=== PATIENT | female | born 1930 | race Caucasian/White ===

== ENCOUNTER 2018-03-01 07:06 | Emergency (ER) | payer MEDICARE, OTHER ==
[~2018-03-01] VITALS: Ht 157.5 cm; Wt 63.5 kg
[~2018-03-01 07:06] MED LIST: FLUDROCORTISON0.1 MG PO; LEVOTHYROXINE75 MCG PO; LIOTHYRONINE PO; PREDNISONE2.5 MG PO; PREDNISONE20 MG; PREDNISONE5 M1 PO; PROTONIX40 MG PO
--- OUTSIDE RECORDS SUMMARY | 2018-03-01 07:08 | XMS REPORT | Clinical Summary ---
Author Author [facility] Organization [facility] Address Unknown Phone Unavailable Care Team Providers Care Service Station Cashier Name Role Phone Yovani Cesar MD PCP Unavailable Allergies Active Allergy Reactions Severity Noted Date Comments Buspirone 09/20/2017 Codeine 09/20/2017 Current Medications Prescription Sig. Disp. Refills Start End Date Status Date hydrocortisone (CORTEF) 2.5 tablets daily. 1.5 in 07/12/20 Active 10 MG tablet the AM and .5 at noon and 17 .5 qhs fludrocortisone 0.1 mg 0.5 tablets daily. 08/15/20 Active tablet 17 pantoprazole (PROTONIX) 1 tablet daily. 07/18/20 Active 40 MG EC tablet 17 levothyroxine (SYNTHROID, 1 tablet daily. 08/17/20 Active LEVOXYL) 88 mcg tablet 17 cholecalciferol, vitamin Take 2,000 Units by mouth Active D3, (VITAMIN D3) 2,000 daily. unit capsule capsule cyanocobalamin 1,000 1,000 mcg every 14 12/28/19 Active mcg/mL injection (fourteen) days. 18 memantine (NAMENDA) 5 MG Take one by mouth in a.m. 90 tablet 4 Active tablet and 2 by mouth in the 18 p.m. as directed memantine (NAMENDA XR) 7 Take 1 by mouth every 46 capsule 0 09/20/20 09/27/20 Discontin mg capsule,sprinkle,ER morning for 2 weeks and 17 17 ued 24hrIndications: Late then 2 by mouth every onset Alzheimer's disease morning thereafter with behavioral disturbance memantine (NAMENDA) 5 MG Take 1 tablet daily for a 60 tablet 3 01/19/20 Discontin tablet week and then 1 tablet 17 18 ued twice daily thereafter memantine (NAMENDA) 5 MG TAKE ONE TABLET BY MOUTH 60 tablet 0 02/06/20 Discontin tablet ONCE DAILY FOR ONE WEEK, 18 18 ued THEN TAKE ONE TABLET TWICE DAILY THEREAFTER Active Problems Problem Noted Date Late onset Alzheimer's disease with behavioral disturbance 09/20/2017 Anxiety 09/20/2017 Hallucinations 09/20/2017 Encounters Date Type Specialty Care Team Description 02/05/2018 Telephone Neurology Cristina Hanley MA 01/22/2018 Telephone Neurology Cristina Hanley MA 01/20/2018 Telephone Neurology Lucy Lema MD Late onset Alzheimer's disease with behavioral disturbance (Primary Dx) 01/18/2018 Refill Neurology Lucy Lema MD 01/16/2018 Office Visit Neurology Lucy Lema MD Late onset Alzheimer's disease with behavioral disturbance (Primary Dx); Anxiety; Hallucinations 01/16/2018 Refill Neurology Lucy Lema MD 09/26/2017 Telephone Neurology Cristina Hanley MA 09/20/2017 Office Visit Neurology Lucy Lema MD Late onset Alzheimer's disease with behavioral disturbance (Primary Dx); Anxiety; Hallucinations after 02/28/2017 Family History Medical History Relation Name Comments Alzheimer's disease Sister Relation Name Status Comments Father (Age 76) Mother (Age 99) Sister Alive Social History Tobacco Use Types Packs/Day Years Used Date Never Smoker Smokeless Tobacco: Never Used Alcohol Use Drinks/Week oz/Week Comments No Sex Assigned at Date Recorded Not on file Last Filed Vital Signs Vital Sign Reading Time Taken Blood Pressure - - Pulse - - Temperature - - Respiratory Rate - - Oxygen Saturation - - Inhaled Oxygen - - Concentration Weight 60.3 kg (133 lb) 01/16/2018 2:10 PM ELECTRICAL INSTALLATION INSPECTOR Height 152.4 cm (5') 01/16/2018 2:10 PM ELECTRICAL INSTALLATION INSPECTOR Body Mass Index 25.97 01/16/2018 2:10 PM ELECTRICAL INSTALLATION INSPECTOR Plan of Treatment Date Type Specialty Care Team Description 07/17/2018 Office Visit Neurology Lucy Lema MD [address] [facility] [address] [place] [id number] [phone] Health Maintenance Due Date Last Done Comments ZOSTER VACCINE 1989 PNEUMOCOCCAL 1994 POLYSACCHARIDE VACCINE AGE 65 AND OVER PNEUMOCOCCAL-13 1994 INFLUENZA VACCINE 06/11/2018 Results Not on fileafter 02/28/2017 Insurance Payer Benefit Subscriber ID Type Phone Address Plan / Group MEDICARE MEDICARE xxxxxxxxxx Medicare [place], [place] PART A AND B AARP AARP xxxxxxxxx-xx [place] [address]
--- NOTE | 2018-03-01 09:33 | Diagnostic Imaging Report ---
KNEE LEFT THREE VIEWS - 3 views HISTORY: Pain. Knee laceration COMPARISON: None available. FINDINGS: Bones: No acute displaced fracture. Osseous alignment is within normal limits. Joints: Mild degenerative changes in the medial and patellofemoral compartments. Soft tissues: Subcutaneous emphysema with soft tissue thickening in the infrapatellar region. IMPRESSION: 1. No acute radiographic abnormality. No radiopaque foreign bodies. 2. Subcutaneous emphysema with soft tissue thickening in the infrapatellar region. Signed by: Dr. Tyler Keenan M.D. on 03/01/2018 9:29 AM
--- NOTE | 2018-03-01 09:34 | Diagnostic Imaging Report ---
HIP LEFT 2-3 VW (+/- PELVIS) - 3 views HISTORY: Pain. Laceration knee COMPARISON: None available. FINDINGS: Bones: No acute displaced fracture. Osseous alignment is within normal limits. Joints: Moderate joint space narrowing in bilateral hips. Severe degenerative changes in lower lumbar spine. Soft tissues: The soft tissues appear unremarkable. IMPRESSION: No acute radiographic abnormality. Signed by: Dr. Tyler Keenan M.D. on 03/01/2018 9:30 AM
--- NOTE | 2018-03-01 09:35 | Diagnostic Imaging Report ---
EXAMINATION: CHEST SINGLE (NOT PORTABLE) INDICATION: \S\fell onto left knee COMPARISON: None FINDINGS: AP view TUBES and LINES: None. LUNGS: Lungs are mildly hypoinflated. Emphysematous changes.. Calcified granuloma in the left midlung. Biapical pleural-parenchymal scarring. Lungs are otherwise clear. There is no evidence of pneumonia or pulmonary edema. PLEURA: No pleural effusion or pneumothorax. HEART AND MEDIASTINUM: The cardiomediastinal silhouette is unremarkable. There are atherosclerotic calcifications within the aorta. BONES AND SOFT TISSUES: No acute osseous lesion. Moderate degenerative changes in left shoulder. Soft tissues are unremarkable. UPPER ABDOMEN: No free air under the diaphragm. IMPRESSION: No acute thoracic abnormality. Signed by: Dr. Tyler Keenan M.D. on 03/01/2018 9:32 AM
== END 2018-03-01 10:27 | disposition home or self-care (01) ==
LOC: ER 07:06
DX: S81.002A Unspecified open wound, left knee, initial encounter (principal); M79.652 Pain in left thigh; Y92.008 Other place in unspecified non-institutional (private) residence as the place of occurrence of the external cause; W19.XXXA Unspecified fall, initial encounter; F03.90 Unspecified dementia, unspecified severity, without behavioral disturbance, psychotic disturbance, mood disturbance, and anxiety; E03.9 Hypothyroidism, unspecified; E27.1 Primary adrenocortical insufficiency
CPT/HCPCS: 71045; 99283

== ENCOUNTER → 2018-03-18 | Outpatient (CLI) | payer MEDICARE ==
--- NOTE | 2018-03-18 12:27 | Diagnostic Imaging Report ---
PROCEDURE:HIPS BILAT TWO VWS(+/- PELVIS) TECHNIQUE:AP and frog-leg lateral views of both hips INDICATION:Pain COMPARISON:None. FINDINGS: See conclusion. CONCLUSION: 1. Displaced left superior and minimally displaced left inferior pubic rami fractures with extension into the pubic symphysis. Right pubic rami intact. 2. Intact femurs and acetabula. Dictated by: Michel Shukla M.D. on 03/18/2018 at 12:29 Electronically approved by: Michel Shukla M.D. on 03/18/2018 at 12:29
== END ==
LOC: RAD 11:30
PROVIDERS: ATTEND Internal Medicine
DX: M25.552 Pain in left hip (principal); M25.551 Pain in right hip
CPT/HCPCS: 73521

== ENCOUNTER → 2018-04-10 | Outpatient (RCR) | payer MEDICARE ==
[~2018-04-10] MED LIST changes: +LIDOCAINE/PRILOCAINE 2.5-2.5% KIT ONE
== END ==
LOC: WCC 09:48
PROVIDERS: ATTEND Family Medicine Adult Medicine
DX: S81.002A Unspecified open wound, left knee, initial encounter (principal); E03.2 Hypothyroidism due to medicaments and other exogenous substances; E27.1 Primary adrenocortical insufficiency; F03.90 Unspecified dementia, unspecified severity, without behavioral disturbance, psychotic disturbance, mood disturbance, and anxiety; H91.23 Sudden idiopathic hearing loss, bilateral; K21.9 Gastro-esophageal reflux disease without esophagitis; W06.XXXA Fall from bed, initial encounter

== ENCOUNTER 2018-05-02 16:20 | Outpatient (RCR) | payer MEDICARE ==
[~2018-05-02 16:20] MED LIST changes: +LIDOCAINE VISC 2% SOLN 15 ML UDC ONE; -LIDOCAINE/PRILOCAINE 2.5-2.5% KIT ONE
== END 2018-05-10 ==
LOC: WCC 16:20
PROVIDERS: ATTEND Family Medicine Adult Medicine
DX: S81.002A Unspecified open wound, left knee, initial encounter (principal); W06.XXXA Fall from bed, initial encounter; E03.2 Hypothyroidism due to medicaments and other exogenous substances; E27.1 Primary adrenocortical insufficiency; F03.90 Unspecified dementia, unspecified severity, without behavioral disturbance, psychotic disturbance, mood disturbance, and anxiety; H91.23 Sudden idiopathic hearing loss, bilateral; K21.9 Gastro-esophageal reflux disease without esophagitis

== ENCOUNTER → 2019-01-08 | Outpatient (CLI) | payer MEDICARE ==
[~2019-01-08] MED LIST changes: -LIDOCAINE VISC 2% SOLN 15 ML UDC ONE
--- NOTE | 2019-01-08 11:22 | Diagnostic Imaging Report ---
EXAMINATION: CHEST 2 VIEWS INDICATION: Cough. COMPARISON: Chest radiograph 03/01/2018. FINDINGS: TUBES and LINES: None. LUNGS: Emphysematous changes. Calcified granuloma in the left midlung. Biapical pleural-parenchymal opacity. There is no evidence of pneumonia or pulmonary edema. PLEURA: No pleural effusion or pneumothorax. HEART AND MEDIASTINUM: The cardiomediastinal silhouette is unchanged. There are atherosclerotic calcifications within the aorta. There is a large hiatal hernia. BONES AND SOFT TISSUES: Diffuse osteopenia which limits evaluation. No acute abnormality. UPPER ABDOMEN: No free air under the diaphragm. IMPRESSION: No acute radiographic abnormality. Large hiatal hernia. Suggest clinical correlation for gastroesophageal reflux in this patient with cough. Signed by: Dr. Lizandro Aguirre MD on 01/08/2019 11:19 AM
== END ==
LOC: RAD 10:38
PROVIDERS: ATTEND Internal Medicine
DX: R05 Cough (principal)
CPT/HCPCS: 71046

== ENCOUNTER 2019-04-03 16:27 | Inpatient (IN) | payer MEDICARE ==
[~2019-04-03] VITALS: Ht 154.9 cm; Wt 59.5 kg
--- OUTSIDE RECORDS SUMMARY | 2019-04-03 16:30 | XMS REPORT | Clinical Summary ---
Author Author [facility] Organization [facility] Address Unknown Phone Unavailable Care Team Providers Care Training Officer Name Role Phone Rusty Cesar MD PCP Allergies Comments Active Allergy Reactions Severity Noted Date Buspirone 09/20/2017 Codeine 09/20/2017 Medications End Date Status Medication Sig Dispensed Refills Start Date Active hydrocortisone (CORTEF) 2.5 tablets 0 10 MG tablet daily. 1.5 in 7 the AM and .5 at noon and .5 qhs Active fludrocortisone 0.1 mg 0.5 tablets 0 tablet daily. 7 Active pantoprazole (PROTONIX) 1 tablet 0 40 MG EC tablet daily. 7 Active levothyroxine (SYNTHROID, 1 tablet 0 LEVOXYL) 88 mcg tablet daily. 7 Active cholecalciferol, vitamin Take 2,000 0 D3, (VITAMIN D3) 2,000 Units by unit capsule capsule mouth daily. Active cyanocobalamin 1,000 1,000 mcg 0 mcg/mL injection every 14 8 (fourteen) days. Active donepezil (ARICEPT) 5 MG Take 1 tablet 30 tablet 2 tabletIndications: Late daily after 8 onset Alzheimer's disease lunch with behavioral disturbance Active memantine (NAMENDA) 10 MG TAKE 1 TABLET 180 tablet 0 tablet TWICE DAILY 9 04/29/2018 Discontinued memantine (NAMENDA) 5 MG Take one by 90 tablet 4 tablet mouth in a.m. 8 and 2 by mouth in the p.m. as directed 10/28/2018 Discontinued memantine (NAMENDA) 10 MG Take 1 tablet 60 tablet 3 tablet (10 mg total) 8 by mouth 2 (two) times a day. 10/07/2018 Discontinued sertraline (ZOLOFT) 25 MG Take 1 by 60 tablet 2 tablet mouth daily 8 for 2 weeks and then 2 by mouth daily thereafter 03/02/2019 Discontinued memantine (NAMENDA) 10 MG TAKE 1 TABLET 180 tablet 1 tablet TWICE DAILY 8 Active Problems Problem Noted Date Daytime somnolence 10/07/2018 Late onset Alzheimer's disease with behavioral disturbance 09/20/2017 Anxiety 09/20/2017 Hallucinations 09/20/2017 Encounters Care Team Description Date Type Specialty Cristina Hanley MA 04/03/2019 Telephone Neurology Lucy Lema MD 03/02/2019 Refill Neurology Cristina Hanley MA 01/06/2019 Telephone Neurology Cristina Hanley MA 12/10/2018 Telephone Neurology Lucy Lema MD 10/28/2018 Refill Neurology Cristina Hanley MA 10/13/2018 Telephone Neurology Lucy Lema MD Late onset Alzheimer's disease with behavioral disturbance (Primary Dx); Anxiety; Hallucinations; Daytime somnolence 10/07/2018 Office Visit Neurology Cristina Hanley MA 05/13/2018 Telephone Neurology Cristina Hanley MA 04/29/2018 Telephone Neurology after 04/02/2018 Family History Medical History Relation Name Comments Alzheimer's disease Sister Relation Name Status Comments Father (Age 76) Mother (Age 99) Sister Alive Social History Date Tobacco Use Types Packs/Day Years Used Never Smoker Smokeless Tobacco: Never Used Alcohol Use Drinks/Week oz/Week Comments No Sex Assigned at Date Recorded Not on file Industry Job Start Date Occupation Not on file Not on file Not on file Travel End Travel History Travel Start No recent travel history available. Last Filed Vital Signs Time Taken Vital Sign Reading - Blood Pressure - - Pulse - - Temperature - - Respiratory Rate - - Oxygen Saturation - - Inhaled Oxygen - Concentration 10/07/2018 10:31 AM MANAGER INTERMEDIATE Weight 60.8 kg (134 lb) 10/07/2018 10:31 AM MANAGER INTERMEDIATE Height 152.4 cm (5') 10/07/2018 10:31 AM MANAGER INTERMEDIATE Body Mass Index 26.17 Plan of Treatment Care Team Description Date Type Specialty Lucy Lema MD [address] [facility] [address] [place], [place] [id number] 06/16/2019 Office Visit Neurology Health Maintenance Due Date Last Done Comments SHINGLES VACCINES (#1) 1979 65+ PNEUMOCOCCAL VACCINE 1994 (1 of 2 - PCV13) PNEUMOCOCCAL 1994 POLYSACCHARIDE VACCINE AGE 65 AND OVER INFLUENZA VACCINE 06/11/2019 Results Not on fileafter 04/02/2018 Insurance Type Payer Benefit Subscriber ID Effective Phone Address Plan / Dates Group Medicare MEDICARE MEDICARE xxxxxxxxxx 1994-P [place], PART A AND resent [place] B Commercial AARP AARP xxxxxxxxx-xx 2015-P SUPPLEMENT resent Advance Directives Patient has advance care planning documents on file. For more information, chris malloy contact: Ok Davis [address] [place] [address]
--- OUTSIDE RECORDS SUMMARY | 2019-04-03 16:30 | XMS REPORT ---
Author Author Bo Acharya Organization [employer] Address Unknown Phone Unavailable Care Team Providers Care Manager Global Communications Name Role Phone Bo Acharya CP Unavailable Allergies No Known Allergies Problems Problem Type Condition Code Onset Dates Condition Status Problem Age related osteoporosis M81.0 Active Problem Vitamin D deficiency E55.9 Active Problem Long-term use of high-risk medication Z79.899 Active Medications No Known Medications Results No Known Results Summary Purpose [employer] Submission
--- OUTSIDE RECORDS SUMMARY | 2019-04-03 16:30 | XMS REPORT | Continuity of Care Document ---
Author Author [facility] Interface Address Unknown Phone Unavailable Problems Problem Status Onset Date Classification Date Reported Comments Source Age related osteoporosis Active Problem 10/25/2018 Farhat Acharya Vitamin D deficiency Active Problem 10/25/2018 Farhat Acharya Long-term use of high-risk medication Active Problem 10/25/2018 Farhat Acharya Endocrine disorder, unspecified Active Diagnosis 10/25/2018 Farhat Acharya Medications Medication Details Route Status Patient Instructions Ordering Provider Order Date Source Prednisone 20 Mg Tab, Active 05/13/2014 [facility] Levothyroxine Sodium 1 tablet on an empty stomach in the morning Orally Active 88 MCG Orally Once a day Newton Acharya Fludrocortisone Acetate 1 tablet Orally Active 0.1 MG Orally Three times a Week Newton Acharya Memantine HCl 1 tablet Orally Active 5 MG Orally twice a day Justine Farhat Acharya Vitamin D-3 as directed Orally Active 2,000 units Orally Newton Acharya Hydrocodone-Acetaminophen 1 tablet as needed Orally Active 20.25mg Orally every 6 hrs Justine Farhat Acharya Prolia as directed Subcutaneous Active 60 MG/ML Subcutaneous Q 6 MONTHS Newton Acharya Memantine HCl 1 tablet Orally Active 10 MG Orally twice a day Newton Acharya Hydrocortisone 1 tablet with food or milk Orally Active 20 MG Orally Four times a day Newton Acharya Fludrocortisone Acetate 0.1 Mg Tab Daily Active [facility] Levothyroxine Sodium 75 Mcg Tablet Daily Active [facility] Liothyronine Daily Active [facility] Pantoprazole Sodium (Protonix) 40 Mg Suspdr.pkt Daily Active [facility] Prednisone 2.5 Mg Tablet Bedtime Active [facility] Prednisone 5 Mg Tab.ds.pk Daily Active [facility] Allergies, Adverse Reactions, Alerts Substance Category Reaction Severity Reaction type Status Date Reported Comments Source Calcium Unknown Allergy to Substance Active 03/01/2018 [facility] Codeine AIRWAY SWELLS. Severe Allergy to Substance Active 03/01/2018 [facility] Aspirin Unknown Allergy to Substance Active 03/01/2018 [facility] Esomeprazole Unknown Allergy to Substance Active 03/01/2018 [facility] Dexlansoprazole Unknown Allergy to Substance Active 03/01/2018 [facility] NSAIDS Unknown Allergy to Substance Active 03/01/2018 [facility] N.K.D.A. Adverse Reaction Info Not Available Adverse Reaction Active 10/23/2018 Farhat Acharya Immunizations Immunization Date Given Site Status Last Updated Comments Source Results Order Name Results Value Reference Range Date Interpretation Comments Source Vital Signs Vital Sign Value Date Comments Source Weight 133.2 10/23/2018 Farhat Mclainer Height 60 10/23/2018 Farhat Acharya Temperature Oral (F) 98.4 F 10/23/2018 Farhat Acharya Heart Rate 71 10/23/2018 Farhat Acharya Diastolic (mm Hg) 75 10/23/2018 Farhat Acharya Systolic (mm Hg) 126 10/23/2018 Farhat Acharya Weight 133 04/16/2018 Farhat Acharya Height 60 04/16/2018 Farhat Acharya Temperature Oral (F) 99.1 F 04/16/2018 Farhat Acharya Heart Rate 68 04/16/2018 Farhat Acharya Diastolic (mm Hg) 78 04/16/2018 Farhat Acharya Systolic (mm Hg) 120 04/16/2018 Farhat Acharya Encounters Location Location Details Encounter Type Encounter Number Reason For Visit Attending Provider ADM Date DC Date Status Source Departed Emergency Room [id number] YUSUF QURESHI MD 03/01/2018 03/01/2018 [facility] Registered Clinic [id number] SANDIP LAST MD 03/18/2018 [facility] Discharged Recurring [id number] KATHRYN ZEPEDA MD 04/10/2018 04/10/2018 [facility] Discharged Recurring [id number] KATHRYN EZPEDA MD 05/02/2018 05/10/2018 [facility] Procedures Procedure Code Date Perfomer Comments Source X-ray of chest, single view [id number] 03/01/2018 [facility]
--- OUTSIDE RECORDS SUMMARY | 2019-04-03 16:30 | XMS REPORT ---
Author [facility] Address Unknown Phone Unavailable Care Team Providers Care Grip Boss Name Role Phone SANDIP LAST Unavailable Unavailable Lacey QURESHI Unavailable Unavailable Problems This patient has no known problems. Allergies, Adverse Reactions, Alerts This patient has no known allergies or adverse reactions. Medications This patient has no known medications. Results Test Description Test Time Test Comments Text Results Atomic Results Result Comments CHEST 2 VIEWS 2019-01-08 11:15:00 [facility] [address] [place] [address] Patient Name: GUI HOFFMAN MR #: [id number] : 1930 Age/Sex: 88/F Req #: [id number] Adm Physician: Ordered by: SANDIP LAST MD Report #: [id number] Location: [facility] Room/Bed: Procedure: [id number] DX/CHEST 2 VIEWS Exam Date: 01/08/19 Exam Time: 1045 REPORT STATUS: Signed EXAMINATION: CHEST 2 VIEWS INDICATION: Cough. COMPARISON: Chest radiograph 03/01/2018. FINDINGS: TUBES and LINES: None. LUNGS: Emphysematous changes. Calcified granuloma in the left midlung. Biapical pleural-parenchymal opacity. There is no evidence of pneumonia or pulmonary edema. PLEURA: No pleural effusion or pneumothorax. HEART AND MEDIASTINUM: The cardiomediastinal silhouette is unchanged. There are atherosclerotic calcifications within the aorta. There is a large hiatal hernia. BONES AND SOFT TISSUES: Diffuse osteopenia which limits evaluation. No acute abnormality. UPPER ABDOMEN: No free air under the diaphragm. IMPRESSION: No acute radiographic abnormality. Large hiatal hernia. Suggest clinical correlation for gastroesophageal reflux in this patient with cough. Signed by: Dr. Shawn Duarte MD on 01/08/2019 11:19 AM Dictated By: SHAWN DUARTE MD 111 Transcribed By: BLOSSOM on 01/08/191118 COPY TO: SANDIP LAST MD HIPS BILAT TWO VWS(+/- PELVIS) [place] [address] Patient Name: GUI HOFFMAN MR #: [id number] : 1930 Age/Sex: 87/F Req #: [id number] Adm Physician: Ordered by: SANDIP LAST MD Report #: [id number] Location: [facility] Room/Bed: Procedure: [id number] DX/HIPS BILAT TWO VWS(+/- PELVIS) Exam Date: Exam Time: REPORT STATUS: Signed PROCEDURE: HIPS BILAT TWO VWS(+/- PELVIS) TECHNIQUE: AP and frog-leg lateral views of both hips INDICATION: Pain COMPARISON: None. FINDINGS: See conclusion. CONCLUSION: 1. Displaced left superior and minimally displaced left inferior pubic rami fractures with extension into the pubic symphysis. Right pubic rami intact. 2. Intact femurs and acetabula. Dictated by: Venus Shukla M.D. on 03/18/2018 at 12:29 Electronically approved by: Venus Shukla M.D. on 03/18/2018 at 12:29 Dictated By: VENUS SHUKLA MD 28 Transcribed By: BRENDEN on 03/18/181228 COPY TO: SANDIP LAST MD HIP LEFT 2-3 VW (+/- PELVIS) [facility] [address] [place] [address] Patient Name: GUI HOFFMAN MR #: [id number] : 1930 Age/Sex: 87/F Req #: [id number] Adm Physician: Ordered by: YUSUF QURESHI MD Report #: [id number] Location: ER Room/Bed: Procedure: [id number] DX/HIP LEFT 2-3 VW (+/- PELVIS) Exam Date: Exam Time: REPORT STATUS: Signed HIP LEFT 2-3 VW (+/- PELVIS) - 3 views HISTORY: Pain. Laceration knee COMPARISON: None available. FINDINGS: Bones: No acute displaced fracture. Osseous alignment is within normal limits. Joints: Moderate joint space narrowing in bilateral hips. Severe degenerative changes in lower lumbar spine. Soft tissues: The soft tissues appear unremarkable. IMPRESSION: No acute radiographic abnormality. Signed by: Dr. Alexandra Banda M.D. on 03/01/2018 9:30 AM Dictated By: ALEXANDRA BANDA MD 9 Transcribed By: BLOSSOM on 03/01/18929 COPY TO: YUSUF QURESHI MD KNEE LEFT THREE VIEWS [place] [address] [place] [address] Patient Name: GUI HOFFMAN MR #: [id number] : 1930 Age/Sex: 87/F Req #: [id number] Adm Physician: Ordered by: YUSUF QURESHI MD Report #: [id number] Location: ER Room/Bed: Procedure: [id number] DX/KNEE LEFT THREE VIEWS Exam Date: 03/01/18 Exam Time: 899 REPORT STATUS: Signed KNEE LEFT THREE VIEWS - 3 views HISTORY: Pain. Knee laceration COMPARISON: None available. FINDINGS: Bones: No acute displaced fracture. Osseous alignment is within normal limits. Joints: Mild degenerative changes in the medial and patellofemoral compartments. Soft tissues: Subcutaneous emphysema with soft tissue thickening in the infrapatellar region. IMPRESSION: 1. No acute radiographic abnormality. No radiopaque foreign bodies. 2. Subcutaneous emphysema with soft tissue thickening in the infrapatellar region. Signed by: Dr. Alexandra Banda M.D. on 03/01/2018 9:29 AM Dictated By: ALEXANDRA BANDA MD 8 Transcribed By: BLOSSOM on 03/01/18928 COPY TO: YUSUF QURESHI MD [facility] SINGLE (NOT PORTABLE) [place] [address] Patient Name: GUI HOFFMAN MR #: [id number] : 1930 Age/Sex: 87/F Req #: [id number] Adm Physician: Ordered by: YUSUF QURESHI MD Report #: [id number] Location: ER Room/Bed: Procedure: [id number] DX/CHEST SINGLE (NOT PORTABLE) Exam Date: 03/01/18 Exam Time: 0900 REPORT STATUS: Signed EXAMINATION: CHEST SINGLE (NOT PORTABLE) INDICATION: S fell onto left knee COMPARISON: None FINDINGS: AP view TUBES and LINES: None. LUNGS: Lungs are mildly hypoinflated. Emphysematous changes.. Calcified granuloma in the left midlung. Biapical pleural-parenchymal scarring. Lungs are otherwise clear. There is no evidence of pneumonia or pulmonary edema. PLEURA: No pleural effusion or pneumothorax. HEART AND MEDIASTINUM: The cardiomediastinal silhouette is unremarkable. There are atherosclerotic calcifications within the aorta. BONES AND SOFT TISSUES: No acute osseous lesion. Moderate degenerative changes in left shoulder. Soft tissues are unremarkable. UPPER ABDOMEN: No free air under the diaphragm. IMPRESSION: No acute thoracic abnormality. Signed by: Dr. Alexandra Banda M.D. on 03/01/2018 9:32 AM Dictated By: ALEXANDRA BANDA MD 1 Transcribed By: BLOSSOM on 03/01/18931 COPY TO: YUSUF QURESHI MD
--- OUTSIDE RECORDS SUMMARY | 2019-04-03 16:30 | XMS REPORT ---
Author Author Enriqueta Glez [facility] [employer] Address Unknown Phone Unavailable Care Team Providers Care Sr Risk Management Consultant Name Role Phone Enriqueta Glez Unavailable Allergies, Adverse Reactions, Alerts Substance Reaction Event Type N.K.D.A. Info Not Available Non Drug Allergy Problems Problem Type Condition Code Onset Dates Condition Status Problem Age related osteoporosis M81.0 Active Problem Vitamin D deficiency E55.9 Active Problem Long-term use of high-risk medication Z79.899 Active Assessment Age related osteoporosis M81.0 Active Medications Medication Code System Code Instructions Start Date End Date Status Dosage Prolia ND 34165803158 60 MG/ML Subcutaneous Q 6 MONTHS Active as directed Memantine HCl ND 53300120204 10 MG Orally twice a day Active 1 tablet Vitamin D-3 ND 79780508657 2,000 units Orally Active as directed Levothyroxine Sodium ND 91077517898 88 MCG Orally Once a day Active 1 tablet on an empty stomach in the morning Hydrocortisone ND 25876798453 20 MG Orally Four times a day Active 1 tablet with food or milk Fludrocortisone Acetate ND 17872274614 0.1 MG Orally Three times a Week Active 1 tablet Vital Signs Date/Time: Oct 23, 2018 BMI 26.01 Index Weight 133.2 lbs Height 60 in Temperature 98.4 F Cardiac Monitoring Heart Rate 71 /min Blood Pressure Diastolic 75 mm Hg Blood Pressure Systolic 126 mm Hg Results No Known Results Summary Purpose [employer] Submission
--- OUTSIDE RECORDS SUMMARY | 2019-04-03 16:30 | XMS REPORT ---
Author Author Bo Acharya Organization [employer] Address Unknown Phone Unavailable Care Team Providers Care Tumbler Drier Operator Name Role Phone Bo Acharya CP Unavailable Allergies No Known Allergies Problems Problem Type Condition Code Onset Dates Condition Status Assessment Endocrine disorder, unspecified E34.9 Active Problem Age related osteoporosis M81.0 Active Problem Vitamin D deficiency E55.9 Active Problem Long-term use of high-risk medication Z79.899 Active Assessment Vitamin D deficiency E55.9 Active Assessment Long-term use of high-risk medication Z79.899 Active Assessment Age related osteoporosis M81.0 Active Medications No Known Medications Results No Known Results Summary Purpose eClinicalWorks Submission
--- OUTSIDE RECORDS SUMMARY | 2019-04-03 16:30 | XMS REPORT ---
Author Author Tran Fletcher [facility] [employer] Address Unknown Phone Unavailable Care Team Providers Care Manager Food Safety Name Role Phone Tran Fletcher CP Unavailable Allergies, Adverse Reactions, Alerts Substance Reaction Event Type N.K.D.A. Info Not Available Non Drug Allergy Problems Problem Type Condition Code Onset Dates Condition Status Problem Age related osteoporosis M81.0 Active Problem Vitamin D deficiency E55.9 Active Problem Long-term use of high-risk medication Z79.899 Active Assessment Age related osteoporosis M81.0 Active Medications Medication Code System Code Instructions Start Date End Date Status Dosage Levothyroxine Sodium ND 65939242555 88 MCG Orally Once a day Active 1 tablet on an empty stomach in the morning Fludrocortisone Acetate ND 33332839243 0.1 MG Orally Three times a Week Active 1 tablet Memantine HCl ND 90524716568 5 MG Orally twice a day Active 1 tablet Vitamin D-3 ND 03944058840 2,000 units Orally Active as directed Hydrocodone-Acetaminophen ND 85827447172 20.25mg Orally every 6 hrs Active 1 tablet as needed Prolia ND 51319173005 60 MG/ML Subcutaneous Q 6 MONTHS Active as directed Vital Signs Date/Time: April 16, 2018 BMI 25.97 Index Weight 133 lbs Height 60 in Temperature 99.1 F Cardiac Monitoring Heart Rate 68 /min Blood Pressure Diastolic 78 mm Hg Blood Pressure Systolic 120 mm Hg Results No Known Results Summary Purpose eClinicalWorks Submission
[2019-04-03 17:51] LABS: BASOPHILS % 0.4 % (0.0-1.0); EOSINOPHILS % 0.4 % (0.0-6.0); HEMATOCRIT 37.9 % (34.2-44.1); HEMOGLOBIN 12.5 g/dL (12.0-16.0); LYMPHOCYTES % 12.4 % (18.0-39.1); MEAN CORPUSCULAR HEMOGLOBIN 28.5 pg (28-32); MEAN CORPUSCULAR VOLUME 86.3 fL (81-99); MONOCYTES # (AUTO) 0.5 (0.2-0.8); MONOCYTES % 6.4 % (4.4-11.3); NEUTROPHILS # (AUTO) 6.6 (2.1-6.9); NEUTROPHILS % 79.9 % (38.7-80.0); PLATELET COUNT 243 x10e3/uL (140-360); RED BLOOD COUNT 4.39 x10e6/uL (3.6-5.1); RED CELL DISTRIBUTION WIDTH 14.7 % (11.7-14.4)
[2019-04-03 18:09] LABS: ALBUMIN/GLOBULIN RATIO 1.2 (0.8-2.0); ANION GAP 12.1 mmol/L (8-16); CALCIUM 9.4 mg/dL (8.4-10.2); CREATININE, SERUM 1.34 mg/dL (0.57-1.11); POTASSIUM 4.1 mmol/L (3.5-5.1)
[2019-04-03] MEDS ORDERED: HYDROCORTISONE SOD SUCCINATE 100 MG VIAL IV ONE (18:45)
--- NOTE | 2019-04-03 19:15 | NUR ---
REDD ODONNELL REQUESTED TO NOT HAVE BP CUFF ON ROUTINELY, WILL TAKE MANUAL BP WITH AUTOMATIC CUFF.
[2019-04-03] MEDS: SODIUM CHLORIDE 0.9% 1000ML 1,000 ML IV SCH (19:20)
[2019-04-03 19:50] LABS: BILIRUBIN,URINE NEGATIVE (NEGATIVE); COLOR,URINE YELLOW (YELLOW); KETONES,URINE NEGATIVE (NEGATIVE); LEUKOCYTE ESTERASE ,URINE NEGATIVE (NEGATIVE); NITRITE,URINE NEGATIVE (NEGATIVE); URINE UROBILINOGEN 0.2 mg/dL (0.2 - 1)
[2019-04-03 19:51] LABS: CLARITY,URINE SL CLOUDY (CLEAR); PROTEIN,URINE DIPSTICK 2+ (NEGATIVE)
[2019-04-03 20:03] LABS: AMORPHOUS SEDIMENT,URINE MANY (FEW); BACTERIA,URINE FEW /HPF
--- NOTE | 2019-04-03 20:27 | Diagnostic Imaging Report ---
EXAMINATION: CHEST SINGLE (PORTABLE) INDICATION: Altered mental status ^ams ^Y COMPARISON: January 08, 2019 FINDINGS: TUBES and LINES: None. LUNGS: Emphysematous changes. Calcified granuloma in the left midlung. Biapical pleural-parenchymal opacity. There is no evidence of pneumonia or pulmonary edema. PLEURA: No pleural effusion or pneumothorax. HEART AND MEDIASTINUM: The cardiomediastinal silhouette is unchanged. There are atherosclerotic calcifications within the aorta. There is a large hiatal hernia. BONES AND SOFT TISSUES: Diffuse osteopenia which limits evaluation. No acute abnormality. UPPER ABDOMEN: No free air under the diaphragm. IMPRESSION: No acute radiographic abnormality. Large hiatal hernia. Suggest clinical correlation for gastroesophageal reflux in this patient with altered mental status. Signed by: Dr. Sushil Piña M.D. on 04/03/2019 8:24 PM
--- NOTE | 2019-04-03 20:32 | Diagnostic Imaging Report ---
CT BRAIN WO HISTORY: Altered mental status COMPARISON: None. Technique: Noncontrast axial scans were obtained from skull base to the vertex. Coronal and sagittal reconstructions obtained from the axial data. One or more of the following dose reduction techniques were used: Automated exposure control, adjustment of the mA and/or kV according to patient size, and/or utilization of iterative reconstruction technique. DISCUSSION: Scalp/Skull: Unremarkable. Brain sulci: Prominent. Ventricles: Compensatory dilatation. Extra-axial spaces: No masses or fluid collections. Carotid siphon calcifications are present. Parenchyma: Mild to moderate bilateral deep white matter hypodensity is likely chronic microvascular ischemic change. Otherwise, no masses, hemorrhage, or large vascular territory acute infarct. Dural sinuses: No abnormal densities. Sellar/Suprasellar region: Intact. Skull base: Intact. Incidental findings: Both ocular lenses are thinned. IMPRESSION: 1. No acute intracranial abnormalities. 2. Mild to moderate supratentorial chronic microvascular ischemic change. Generalized cerebral volume loss. Signed by: Dr. Kendrick Merrill M.D. on 04/03/2019 8:28 PM
[2019-04-03] MEDS ORDERED: SODIUM CHLORIDE 0.9% 1000ML 1,000 ML IV SCH (21:10)
[2019-04-03] MEDS ORDERED: ONDANSETRON HCL INJ 2MG/ML 2ML 2 MG/ML VIAL IV PRN (21:15)
--- OUTSIDE RECORDS SUMMARY | 2019-04-03 21:23 | XMS REPORT | Clinical Summary ---
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
--- NOTE | 2019-04-03 22:15 | NUR ---
PT DAUGHTER REFUSING TO TAKE BP AT THIS TIME, PROVIDED EDUCATION ON NEED FOR BLOOD PRESSURE MEASUREMENT, CHARGE NURSE MADE AWARE.
--- NOTE | 2019-04-03 22:30 | NUR ---
PT DAUGHTER STILL REFUSING BP CHECK AT THIS TIME, PT DAUGHTER WAS EDUCATED ON RISKS AND BENEFITS OF NOT TAKING BP. CONTINUES TO DENY AND STATES "I JUST CAN'T HAVE MY MOM GO THROUGH THAT, IT'S TRAUMATIZING TO HER".
--- NOTE | 2019-04-04 01:05 | NUR ---
patient stable condition, no s/s of distress observed at this time. patient resting. family member at bedside. respirations even and unlabored. family member to stay overnight, instructed to use call light for assistance, family member verbalized understanding. bed locked and in lowest position, call light within reach.
[2019-04-04] MEDS ORDERED: NAMENDA10 MG PO (02:13)
[2019-04-04] MEDS ORDERED: HYDROCORTISONE10 MG PO ×2 (02:13)
[2019-04-04] MEDS ORDERED: LEVOTHYROXINE88 MCG PO (02:13)
[2019-04-04] MEDS: SODIUM CHLORIDE 0.9% 1000ML 1,000 ML IV SCH ×2 (04:45→07:16)
[2019-04-04 06:21] VITALS: BP 114/97
--- NOTE | 2019-04-04 06:40 | NUR ---
patient received from the ER by stretcher at 2355. Patient transferred to bed. patient lethargic at time of arrival. Opens eye to voice, assessment completed. daughter Maryan at bedside. refused to have vital signs at this time.
--- NOTE | 2019-04-04 07:00 | NUR ---
bedside rounds complete no distress noted, updated on poc voiced understanding, denies pain at this time,ivf infusing to r ac 20g, pt sleeping awakens easily, daughter at bedside, call light in reach will continue ot monitor
[2019-04-04] MEDS ORDERED: CIPROFLOXACIN 400 MG/D5W 200ML 200 ML IV SCH (07:15)
[2019-04-04 08:11] LABS: BASOPHILS # (AUTO) 0.1 (0.0-0.1); BASOPHILS % 0.7 % (0.0-1.0); EOSINOPHILS # (AUTO) 0.1 (0.0-0.4); EOSINOPHILS % 1.8 % (0.0-6.0); HEMATOCRIT 35.5 % (34.2-44.1); HEMOGLOBIN 11.3 g/dL (12.0-16.0); LYMPHOCYTES # (AUTO) 1.1 (1.0-3.2); LYMPHOCYTES % 16.7 % (18.0-39.1); MEAN CORPUSCULAR HEMOGLOBIN 28.4 pg (28-32); MEAN CORPUSCULAR HGB CONC 31.8 g/dL (31-35); MEAN CORPUSCULAR VOLUME 89.2 fL (81-99); MONOCYTES # (AUTO) 0.7 (0.2-0.8); MONOCYTES % 10.1 % (4.4-11.3); NEUTROPHILS # (AUTO) 4.7 (2.1-6.9); NEUTROPHILS % 70.1 % (38.7-80.0); PLATELET COUNT 208 x10e3/uL (140-360); RED BLOOD COUNT 3.98 x10e6/uL (3.6-5.1); RED CELL DISTRIBUTION WIDTH 14.7 % (11.7-14.4)
[2019-04-04 08:31] LABS: ALBUMIN 2.6 g/dL (3.5-5.0); ALBUMIN/GLOBULIN RATIO 1.2 (0.8-2.0); ANION GAP 9.5 mmol/L (8-16); CALCIUM 8.5 mg/dL (8.4-10.2); CREATININE, SERUM 0.97 mg/dL (0.57-1.11); POTASSIUM 3.5 mmol/L (3.5-5.1)
[2019-04-04] MEDS ORDERED: FLUDROCORTISONE ACETATE 0.1 MG TAB PO SCH (09:00)
[2019-04-04] MEDS ORDERED: HYDROCORTISONE SOD SUCCINATE 100 MG VIAL IV SCH (09:00)
[2019-04-04 10:00] VITALS: BP 114/97
[2019-04-04] MEDS: HYDROCORTISONE 10 MG TAB PO SCH ×3 (10:00→17:00)
[2019-04-04] MEDS: MEMANTINE 10 MG TAB PO SCH ×2 (10:00→17:00)
[2019-04-04] MEDS: CIPROFLOXACIN 400 MG/D5W 200ML 200 ML IV SCH ×2 (10:00→21:45)
[2019-04-04] MEDS: PANTOPRAZOLE SODIUM 40 MG SUSPDR.PKT PO SCH (10:00)
[2019-04-04] MEDS: FLUDROCORTISONE ACETATE 0.1 MG TAB PO SCH (10:30)
[2019-04-04] MEDS ORDERED: VITAMIN D32000 UNI1 PO (14:00)
--- NOTE | 2019-04-04 19:19 | NUR ---
BEDSIDE SHIFT REPORT RECEIVED. PT LAYING SEMI FOWLERS IN BED, AAOX1, RR EVEN AND NON-LABORED, ON RA. NO S/SX OF DISTRESS NOTED. LEFT PT LAYING SEMI FOWLERS IN BED, BED IN LOW LOCKED POSITION, SIDE RAILS UPX2, CALL LIGHT AND PHONE WITHIN REACH.
--- NOTE | 2019-04-04 19:33 | NUR ---
REPORT GIVEN TO ONCOMING SHIFT, PT STABLE, NO DISTRESS NOTED,CALL LIGHT IN REACH
[2019-04-04] MEDS: LEVOTHYROXINE SODIUM 88 MCG TAB PO SCH (20:37)
[2019-04-04 23:09] VITALS: BP 114/97
[2019-04-05] MEDS: SODIUM CHLORIDE 0.9% 1000ML 1,000 ML IV SCH ×3 (00:45→20:17)
--- NOTE | 2019-04-05 02:41 | NUR ---
REPORT GIVEN TO Ana PRASAD TO CONTINUE CARE FOR PATIENT. PT STABLE RESTING IN BED. LEFT PT LAYING SEMI FOWLERS IN BED, BED IN LOW LOCKED POSITION, SIDE RAILS UPX2, CALL LIGHT AND PHONE WITHIN REACH. FAMILY AT BEDSIDE.
--- NOTE | 2019-04-05 02:49 | NUR ---
received report. pt resting. no ss of distress noted. call romero within reach.
[2019-04-05 04:00] VITALS: BP 152/75
--- NOTE | 2019-04-05 04:11 | NUR ---
walked patient and his service animal out to allow him to use the restroom. Patient and service returned to room. Addendum: 04/05/19 at 0414 by Analisa Mayberry RN please disregard note.
--- NOTE | 2019-04-05 05:35 | NUR ---
diaper saturated. right ac iv out catheter tip intact. x2 22g successful to left forearm. pt tolerated well. pt cleaned and linen changed. no distress noted. call romero within reach. Addendum: 04/05/19 at 0538 by Renetta Fine RN warm blankets applied.
--- NOTE | 2019-04-05 06:36 | NUR ---
bed alarm going off. assisted pt up to bsc and back to bed. no ss of distress noted. call romero within reach.
--- NOTE | 2019-04-05 07:00 | NUR ---
bedside rounds complete report received from night nurse, pt sleeping easily awakens, no distress noted, ivf infusing to l fa 22g no ss of infiltration noted, no other co voiced call light in reach will continue ot monitor
[2019-04-05 08:22] VITALS: BP 152/75
[2019-04-05] MEDS: FLUDROCORTISONE ACETATE 0.1 MG TAB PO SCH (08:22)
[2019-04-05] MEDS: MEMANTINE 10 MG TAB PO SCH ×2 (08:22→17:41)
[2019-04-05] MEDS: HYDROCORTISONE 10 MG TAB PO SCH ×3 (08:22→17:41)
[2019-04-05] MEDS: PANTOPRAZOLE SODIUM 40 MG SUSPDR.PKT PO SCH (08:22)
[2019-04-05] MEDS: CIPROFLOXACIN 400 MG/D5W 200ML 200 ML IV SCH ×2 (09:20→21:56)
[2019-04-05] MEDS ORDERED: ONDANSETRON HCL 4 MG ORAL DISINTEGRATING TAB PO PRN (17:00)
--- NOTE | 2019-04-05 17:40 | NUR ---
Nutrition Screen Note RD Recommendation for Physician: Continue diet as ordered Plan of Care: RD following, monitoring for tolerance and adequacy Nutrition reason for involvement: Nutrition Risk Trigger - MST Primary Diagnose(s): Dehydration, generalized weakness, lethargy PMH: HTN, Dementia, CKD stage 3 Ht:61 in Wt:131.25lb BMI:24.8 kg/m2 IBW:105lb RD Assessment: (04/05/2019) Chart reviewed. Labs and meds reviewed. Initial encounter with patient. Caregiver provided nutrition due to Dementia. Pt needs to be fed. Pt is eating well and was eating Well SPEEDER HAND. Attempted to contact daughter of patient regarding allergy to calcium. Spoke to nurse also to clarify. Pt does not have any difficulty chewing or swallowing with partials. No N,V, D reported. Current Diet: Cardiac diet Malnutrition Evaluation (04/05/2019) The patient does not meet criteria for a specified degree of malnutrition at this time. Will re-evaluate at follow-up as appropriate. Diet Education Needs Assessment: Diet education not indicated. Nutrition Care Level: Low Signed: Mitul Paz RD, LD, [facility]
[2019-04-05] MEDS: LEVOTHYROXINE SODIUM 88 MCG TAB PO SCH (20:15)
--- NOTE | 2019-04-06 00:36 | NUR ---
patients daughter refused to have patients vital taken.
--- NOTE | 2019-04-06 03:12 | NUR ---
patients daughter called the nurses station stating the patient needed to be changed. Myself and PCT went in to change the patient. The patient was soaked from head to toe. The patient was cleaned, linens changed. Daughter requested to have the patient put in her own pajamas.
[2019-04-06] MEDS: SODIUM CHLORIDE 0.9% 1000ML 1,000 ML IV SCH ×3 (06:00→17:15)
--- NOTE | 2019-04-06 07:20 | NUR ---
RECEIVED PATIENT RESTING IN BED AT THIS TIME NO SIGNS OF DISTRESS. BED LOW, WHEELS LOCKED, SIDE RAILS X2. CALL LIGHT IN REACH WILL CONTINUE TO MONITOR.
[2019-04-06 08:07] VITALS: BP 173/79
[2019-04-06] MEDS: PANTOPRAZOLE SODIUM 40 MG SUSPDR.PKT PO SCH (09:00)
[2019-04-06] MEDS: FLUDROCORTISONE ACETATE 0.1 MG TAB PO SCH (09:00)
[2019-04-06] MEDS: HYDROCORTISONE 10 MG TAB PO SCH (09:00)
[2019-04-06] MEDS: MEMANTINE 10 MG TAB PO SCH ×2 (09:00→16:20)
--- NOTE | 2019-04-06 09:00 | NUR ---
PATIENT A/O X1. EVEN RESPIRATIONS ON RA. SKIN INTACT WITH SLIGHT BRUISING. LEFT HAND 22 GAUGE AND LEFT WRIST 22 GAUGE IV INTACT AND PATENT. NS @ 100 CC/HR. NO SIGNS OF DISTRESS. DIAPER IN PLACE. DAUGHTER AT BEDSIDE. CALL LIGHT IN REACH WILL CONTINUE TO MONITOR PATIENT.
--- NOTE | 2019-04-06 09:28 | NUR ---
PAGED DR. LAST REGARDING PATIENT UNABLE TO TAKE PILLS. ORDER FOR 50 MG IV HYDROCORTISONE AND HYDRALAZINE PRN IV Q6 IF IN BLOOD PRESSURE PARAMETERS.
[2019-04-06] MEDS ORDERED: HYDROCORTISONE SOD SUCCINATE 100 MG VIAL IV ONE (09:30)
[2019-04-06] MEDS: CIPROFLOXACIN 400 MG/D5W 200ML 200 ML IV SCH ×2 (09:36→21:42)
[2019-04-06] MEDS: HYDRALAZINE HCL 20 MG/ML VIAL IV PRN (09:51)
[2019-04-06 10:38] VITALS: BP 173/79
[2019-04-06 12:00] VITALS: BP 92/57
--- NOTE | 2019-04-06 14:25 | NUR ---
NOTIFIED DR. LAST REGARDING SPEECH EVAL. NEW ORDER FOR NPO DIET.
[2019-04-06 15:55] VITALS: BP 112/56
[2019-04-06 20:13] VITALS: BP 104/51
--- NOTE | 2019-04-06 20:55 | NUR ---
INFORMED DR. LAST REGARDING PT TEMP. NEW ORDER RCV FOR PRN IV TYLENOL.
[2019-04-06] MEDS ORDERED: ACETAMINOPHEN 1000 MG/100 ML IV PRN (21:00)
[2019-04-06] MEDS: LEVOTHYROXINE SODIUM 88 MCG TAB PO SCH (21:00)
[2019-04-06] MEDS: HYDROCORTISONE SOD SUCCINATE 100 MG VIAL IV SCH (21:40)
[2019-04-07 00:34] VITALS: BP 128/64
[2019-04-07] MEDS: SODIUM CHLORIDE 0.9% 1000ML 1,000 ML IV SCH ×3 (04:18→22:45)
--- NOTE | 2019-04-07 04:56 | NUR ---
DR. LAST DOING ROUNDS. NEW ORDER RECEIVE FOR LOVENOX 30MG SUBCU DAILY.
[2019-04-07] MEDS: CEFTRIAXONE SOD 1 GM/NS 50 ML 50 ML IV SCH (05:00)
--- NOTE | 2019-04-07 05:20 | NUR ---
INFORMED DR. LAST AT THIS TIME THAT PT HAS NOT VOIDED AND BLADDER SCAN REVEALED 363ML OF URINE. MD ORDERED TO INSERT COOPER CATH.
--- NOTE | 2019-04-07 05:51 | NUR ---
MAY EAT IF PT PASSES SWALLOW EVAL PER DR. LAST.
--- NOTE | 2019-04-07 06:01 | NUR ---
COOPER CATH INSERTED PER MD ORDER. 350ML OF YELLOW URINE EMPTIED.
[2019-04-07 06:14] LABS: BASOPHILS % 0.2 % (0.0-1.0); HEMATOCRIT 32.3 % (34.2-44.1); HEMOGLOBIN 10.5 g/dL (12.0-16.0); LYMPHOCYTES # (AUTO) 1.1 (1.0-3.2); LYMPHOCYTES % 12.4 % (18.0-39.1); MEAN CORPUSCULAR HEMOGLOBIN 28.9 pg (28-32); MEAN CORPUSCULAR HGB CONC 32.5 g/dL (31-35); MONOCYTES # (AUTO) 0.7 (0.2-0.8); MONOCYTES % 7.7 % (4.4-11.3); NEUTROPHILS # (AUTO) 6.9 (2.1-6.9); NEUTROPHILS % 79.1 % (38.7-80.0); PLATELET COUNT 179 x10e3/uL (140-360); RED BLOOD COUNT 3.63 x10e6/uL (3.6-5.1); RED CELL DISTRIBUTION WIDTH 14.9 % (11.7-14.4)
[2019-04-07 06:39] LABS: ALANINE AMINOTRANSFERASE 15 IU/L (0-55); ALBUMIN 2.4 g/dL (3.5-5.0); ALKALINE PHOSPHATASE 52 IU/L (40-150); BLOOD UREA NITROGEN 17 mg/dL (7-26); BUN/CREATININE RATIO 20 (6-25); CALCIUM 7.5 mg/dL (8.4-10.2); CARBON DIOXIDE 20 mmol/L (22-29); CHLORIDE 109 mmol/L (98-107); CREATININE, SERUM 0.86 mg/dL (0.57-1.11); EST GLOMERULAR FILTRATION RATE > 60 ML/MIN (60-); GLUCOSE 81 mg/dL (74-118); SODIUM 139 mmol/L (136-145)
--- NOTE | 2019-04-07 06:58 | NUR ---
RECEIVED PATIENT AND WALKING ROUNDS COMPLETE. PATIENT ASLEEP AT THIS TIME. NO SIGNS OF DISTRESS. BED LOW, WHEELS LOCKED, SIDE RAILS X2. CALL LIGHT IN REACH. DAUGHTER AT BEDSIDE. WILL CONTINUE TO MONITOR PATIENT.
[2019-04-07] MEDS: MEMANTINE 10 MG TAB PO SCH ×2 (07:08→17:48)
[2019-04-07] MEDS: FLUDROCORTISONE ACETATE 0.1 MG TAB PO SCH (07:08)
--- NOTE | 2019-04-07 07:30 | NUR ---
PATIENT AND FAMILY REFUSED MORNING VITALS.
[2019-04-07] MEDS: HYDROCORTISONE SOD SUCCINATE 100 MG VIAL IV SCH ×2 (08:17→20:25)
[2019-04-07 08:20] VITALS: BP 128/64
[2019-04-07] MEDS ORDERED: PANTOPRAZOLE 40 MG 10ML VIAL IV SCH (09:00)
--- NOTE | 2019-04-07 09:53 | NUR ---
PAGED DR. LAST REGARDING POTASSIUM 3.0 NEW ORDER FOR POTASSIUM 40 MEQ IV.
[2019-04-07] MEDS ORDERED: POTASSIUM CHLORIDE 20MEQ/100ML 200 ML IV ONE (10:00)
[2019-04-07] MEDS: POTASSIUM CHLORIDE 20MEQ/100ML 100 ML IV SCH ×2 (10:36→13:10)
--- NOTE | 2019-04-07 11:35 | NUR ---
PATIENT AND FAMILY REFUSED 12 PM VITAL SIGNS. PATIENTS FAMILY STATED THAT PCT CAN CHECK AFTERNOON VITAL SIGNS.
--- NOTE | 2019-04-07 15:05 | NUR ---
Visit made by the Spiritual Care Department Pastoral Visitor, Sofia Gamble. PV provided pastoral presence, prayer, hospitality, and supportive listening. Pastoral Visitor informed pt/family of the scope of Certified Pathology Assistant Services and availability. PHOEBE MORA Vice President Network Spiritual Care Department O: [phone] Pager: [phone] ([phone] number calling from)
[2019-04-07 16:00] VITALS: BP 135/71
[2019-04-07] MEDS: ENOXAPARIN 30 MG/0.3 ML SYR SC SCH (17:48)
[2019-04-07 20:23] VITALS: BP 151/66
[2019-04-07] MEDS: LEVOTHYROXINE SODIUM 88 MCG TAB PO SCH (20:24)
[2019-04-08] VITALS (8 sets, daily range): BP systolic 82–159; BP diastolic 54–99
[2019-04-08] MEDS: CEFTRIAXONE SOD 1 GM/NS 50 ML 50 ML IV SCH (05:00)
--- NOTE | 2019-04-08 07:10 | NUR ---
bedside rounds complete no distress noted, updated on poc voiced understanding, denies pain at this time, ivf infusing to l wrist 22g no ss of infiltration noted, no other co voiced call light in reach will continue ot monitor
[2019-04-08] MEDS: PANTOPRAZOLE SOD 40 MG TABEC PO SCH (09:25)
[2019-04-08] MEDS: MEMANTINE 10 MG TAB PO SCH ×2 (09:52→17:22)
[2019-04-08] MEDS: HYDROCORTISONE SOD SUCCINATE 100 MG VIAL IV SCH ×2 (09:52→20:15)
[2019-04-08] MEDS: FLUDROCORTISONE ACETATE 0.1 MG TAB PO SCH (09:52)
[2019-04-08] MEDS: SODIUM CHLORIDE 0.9% 1000ML 1,000 ML IV SCH ×2 (09:52→20:18)
--- NOTE | 2019-04-08 13:50 | Diagnostic Imaging Report ---
EXAM: Modified barium swallow with Speech Pathologist INDICATION: ^DYSPHAGIA ^[id number] ^[id number] COMPARISON: None available. RADIATION DOSE: Fluoroscopy Time: 1.4 min Dose (Kerma) Area Product: 1.15 Gycm2 Air Kerma (AK) value has been reviewed. It is below the limits set by the Radiation Protocol Committee (RPC) committee. FINDINGS: See impression IMPRESSION: Silent laryngeal penetration with all consistencies. Silent tracheal aspiration with all consistencies. Refer to speech pathology report for detailed recommendations and description. Signed by: Dr. Yovani Gregorio M.D. on 04/08/2019 1:46 PM
--- NOTE | 2019-04-08 16:02 | NUR ---
Nutrition Follow-up Note RD Recommendation(s) for Physician: -NPO is recommended with risk of aspiration -If PEG is placed, rec to initiate continuous TF with Osmolite 1.2 @ 10mL/hr, advance as tolerated to goal rate of 55mL/hr (1584kcal, 73g protein, 1082mL water) -50mL water flushes q 4hr; additional water per MD -Check labs, gastric tolerance and daily weight Plan of Care: RD following, monitoring for tolerance and adequacy, TF rec Nutrition reason for involvement: Follow up RD Assessment 04/08 Pt was discussed during AM rounds. Per CASTING HOUSE LABORER Evelyn, NPO is recommended with risk of aspiration. Spoke with JANICE Peguero; family refused PEG placement. Visited pt in the room. No caregiver on bedside. Unable to obtain hx from pt due to confusion. Per PCT, pt was eating very well this AM with family feeding the pt. Will continue to monitor and follow. (04/05/2019) Chart reviewed. Labs and meds reviewed. Initial encounter with patient. Caregiver provided nutrition due to Dementia. Pt needs to be fed. 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 Attempted to contact daughter of patient regarding allergy to calcium. Spoke to nurse also to clarify. Pt does not have any difficulty chewing or swallowing with partials. No N,V, D reported. Principal Problems/Diagnoses: dehydration, generalized weakness, lethargy PMH: hypothyroidism GI: abdomen flat, soft, flatus present, LBM 04/08 Skin: intact Labs: (04/07) K 3.0 L, Ca 7.5 L Meds: solu-cortef, NaCl, protonix Ht: 61in Wt: 131.25lb BMI: 24.8kg/m2 IBW: 105lb Malnutrition Evaluation (04/05/2019) The patient does not meet criteria for a specified degree of malnutrition at this time. Will re-evaluate at follow-up as appropriate. Nutrition Prescription (Diet Order): cardiac diet Estimated Nutritional Needs: Calories: 1475 1770kcal(25-30kcal/kg/d) Weight used: CBW Protein: 59 89g (1-1.5g/kg/d) Weight used: CBW Diet Adequacy: Meeting calorie needs, Meeting protein needs Diet Education Needs Assessment: Diet education indicated, but patient not appropriate for education at this time. Nutrition Care Level: mod Nutrition Diagnosis: Swallowing difficulty related to risk of aspiration as evidenced by CASTING HOUSE LABORER recommending EN as alternative source of nutrition. Goal: Patient will meet 75-100% of estimated needs by follow up Progress: N/A Interventions: Composition, Rate, Route, IVF, Collaboration with other providers Monitoring/Evaluation: Total energy intake, Total protein intake, Formula/Solution, IVF, Modified diet, Liquid supplement, Weight change, Gastric tolerance Signed: Lorena De Leon MS, RD, LD
[2019-04-08] MEDS: ENOXAPARIN 30 MG/0.3 ML SYR SC SCH (17:22)
--- NOTE | 2019-04-08 19:00 | NUR ---
RECEIVED PATIENT IN BEDSIDE REPORT. PATIENT RESTING IN BED AT THIS TIME, FAMILY MEMBERS AT BEDSIDE. NO PAIN REPORTED. COOPER DRAINING. L HAND 22G IV ASYMPTOMATIC @ 100ML NS. NO S&S OF DISTRESS NOTED. BED LOCKED IN LOWEST POSITION. SIDE RAILS UP X2. CALL LIGHT IN REACH.
[2019-04-08] MEDS: LEVOTHYROXINE SODIUM 88 MCG TAB PO SCH (20:15)
--- NOTE | 2019-04-08 21:43 | NUR ---
PATIENT'S DAUGHTER REFUSED MIDNIGHT VITALS AND REQUESTED PATIENT ONLY BE TURNED EVERY 4 HOURS INSTEAD OF EVERY 2. DAUGHTER STATES SHE BELIEVES PATIENT GETTING GOOD REST IS MORE IMPORTANT THAN TURNING EVERY 2 HOURS. PUT ON BACK AT 2130, NEXT TURN WILL BE AT 0130. ASKED DAUGHTER TO CALL IF PATIENT IS AWAKE BEFORE THEN SO WE CAN TURN HER. DAUGHTER VERBALIZED UNDERSTANDING.
[2019-04-09] VITALS (8 sets, daily range): BP systolic 102–166; BP diastolic 54–89
--- NOTE | 2019-04-09 00:30 | NUR ---
WRIST BP CUFF READ 82/54. PATIENT ASYMPTOMATIC AND TALKING. CHECKED MANUAL BP TO L UPPER ARM, 128/88.
--- NOTE | 2019-04-09 04:40 | NUR ---
MD LAST IN ROOM WITH PATIENT. ORDERS RECEIVED TO Donte/Destiny COOPER. DAUGHTER REQUESTED WE WAIT TIL DAY SHIFT AFTER SHE HAS RETURNED TO REMOVE IT, MD LAST SAID THAT WAS OKAY.
[2019-04-09] MEDS: CEFTRIAXONE SOD 1 GM/NS 50 ML 50 ML IV SCH (04:59)
[2019-04-09 06:12] LABS: BASOPHILS % 0.1 % (0.0-1.0); HEMATOCRIT 34.4 % (34.2-44.1); HEMOGLOBIN 11.4 g/dL (12.0-16.0); LYMPHOCYTES # (AUTO) 0.8 (1.0-3.2); LYMPHOCYTES % 10.4 % (18.0-39.1); MEAN CORPUSCULAR HEMOGLOBIN 28.4 pg (28-32); MEAN CORPUSCULAR HGB CONC 33.1 g/dL (31-35); MEAN CORPUSCULAR VOLUME 85.6 fL (81-99); MONOCYTES # (AUTO) 0.6 (0.2-0.8); MONOCYTES % 6.9 % (4.4-11.3); NEUTROPHILS # (AUTO) 6.7 (2.1-6.9); PLATELET COUNT 233 x10e3/uL (140-360); RED BLOOD COUNT 4.02 x10e6/uL (3.6-5.1); RED CELL DISTRIBUTION WIDTH 15.1 % (11.7-14.4)
[2019-04-09 06:18] LABS: ALANINE AMINOTRANSFERASE 17 IU/L (0-55); ALBUMIN 2.5 g/dL (3.5-5.0); ALKALINE PHOSPHATASE 49 IU/L (40-150); ANION GAP 9.9 mmol/L (8-16); BLOOD UREA NITROGEN 14 mg/dL (7-26); BUN/CREATININE RATIO 19 (6-25); CALCIUM 7.6 mg/dL (8.4-10.2); CARBON DIOXIDE 22 mmol/L (22-29); CHLORIDE 111 mmol/L (98-107); CREATININE, SERUM 0.72 mg/dL (0.57-1.11); EST GLOMERULAR FILTRATION RATE > 60 ML/MIN (60-); GLUCOSE 124 mg/dL (74-118); SODIUM 140 mmol/L (136-145)
[2019-04-09 06:20] LABS: POTASSIUM 2.9 mmol/L (3.5-5.1)
--- NOTE | 2019-04-09 06:22 | NUR ---
CALL PLACED TO MD LAST CONCERNING CRITICAL LAB VALUE. WAITING FOR CALL BACK.
[2019-04-09] MEDS ORDERED: POTASSIUM CHLORIDE 20 MEQ TAB CR PO STA (06:43)
--- NOTE | 2019-04-09 06:45 | NUR ---
MD LAST INFORMED OF POTASSIUM 2.9, NEW ORDERS RECEIVED.
--- NOTE | 2019-04-09 07:10 | NUR ---
BEDSIDE ROUNDS COMPLETE, PT RECEIVED IN STABLE CONDITION, NO DISTRESS NOTED, UPDATED FAMILY ON POC VOICED UNDERSTANDING, DENIES PAIN AT THIS TIME, IVF INFUSING TO L WRIST 22G NO SS OF INFILTRATION NOTED, NO OTHER CO VOICED CALL LIGHT IN REACH WILL CONTINUE TO MONITOR
[2019-04-09] MEDS: PANTOPRAZOLE SOD 40 MG TABEC PO SCH (07:30)
[2019-04-09] MEDS: SODIUM CHLORIDE 0.9% 1000ML 1,000 ML IV SCH ×2 (08:22→17:39)
[2019-04-09] MEDS: HYDROCORTISONE SOD SUCCINATE 100 MG VIAL IV SCH ×2 (09:24→21:32)
[2019-04-09] MEDS: FLUDROCORTISONE ACETATE 0.1 MG TAB PO SCH (09:25)
[2019-04-09] MEDS: MEMANTINE 10 MG TAB PO SCH ×2 (09:25→17:45)
[2019-04-09] MEDS ORDERED: POTASSIUM CHLORIDE 20 MEQ TAB CR PO SCH (11:00)
--- NOTE | 2019-04-09 12:45 | NUR ---
Pt voided 4 hrs post Arias catheter removal and pt had a bm at the same time, pt denies pain or discomfort at this time. Will continue to monitor.
--- NOTE | 2019-04-09 16:16 | NUR ---
ST NOTE: Awaiting order for NMES to begin dysphagia therapy, requested with RN
[2019-04-09] MEDS: ENOXAPARIN 30 MG/0.3 ML SYR SC SCH (17:45)
--- NOTE | 2019-04-09 19:00 | NUR ---
RECEIVED PATIENT IN BEDSIDE REPORT. PATIENT REPORTS NO PAIN. NO S&S OF DISTRESS NOTED AT THIS TIME. FAMILY MEMBER REPORTS PATIENT HAS NOT SLEPT IN OVER 24 HOURS. R AC 20G IV ASYMPTOMATIC, INTACT, AND PATENT. BED LOCKED IN LOWEST POSITION, SIDE RAILS UPX2, CALL LIGHT IN REACH.
--- NOTE | 2019-04-09 20:03 | NUR ---
CALL PLACED TO MD LAST AT REQUEST OF FAMILY MEMBERS FOR SOMETHING TO HELP PATIENT SLEEP. PATIENT HAS NOT SLEPT IN OVER 24 HOURS D/T AGITATION. AWAITING CALL BACK.
--- NOTE | 2019-04-09 20:22 | NUR ---
MD LAST CALLED BACK, NEW ORDERS RECEIVED. PATIENT DOES NOT TAKE ANY SLEEP AIDS AT HOME. WILL DISCUSS WITH FAMILY POSSIBLE NEGATIVE CONSEQUENCES PRIOR TO ADMINISTRATION TO ENSURE FAMILY IS OKAY WITH THE RISKS.
[2019-04-09] MEDS ORDERED: TRAZODONE HCL 50 MG TAB PO PRN (20:30)
[2019-04-09] MEDS: LEVOTHYROXINE SODIUM 88 MCG TAB PO SCH (21:00)
--- NOTE | 2019-04-09 21:30 | NUR ---
PATIENT SLEEPING IN BED. NO MEDICATION REQUIRED AT THIS TIME TO HELP SLEEP. HOB ELEVATED TO ENSURE EASE OF BREATHING. LUNG SOUNDS CLEAR, BREATHING EVEN AT THIS TIME. NO S&S OF DISTRESS NOTED. DISCUSSED RISKS OF SLEEP AIDE WITH DAUGHTER. BECAUSE PATIENT IS FINALLY CALM, DAUGHTER WOULD LIKE TO HOLD OFF ON SLEEP AIDE UNLESS NEEDED. DAUGHTER REFUSED SYNTHROID, WE WOULD NEED TO WAKE HER UP TO TAKE IT AND STATES SHE FEELS MISSING A DOSE WILL NOT CAUSE HARM. DAUGHTER, GIA, REQUESTED WE NOT COME INTO THE ROOM UNLESS SHE CALLS US IN, STATING "SHE HAS BEEN AWAKE FOR SO LONG, I THINK SLEEP IS THE MOST IMPORTANT THING RIGHT NOW." REMINDED DAUGHTER OF RISKS OF NOT TURNING PATIENT IN BED ENOUGH, DAUGHTER STATED THAT BECAUSE PATIENT WAS WALKING AND SITTING UP IN CHAIR TODAY, SHE DOES NOT FEEL TURNING EVERY 2 HOURS IS IMPORTANT. ASKED HER TO CALL US WHEN PATIENT IS AWAKE SO WE CAN TURN HER THEN AND CHECK VITALS. TOLD DAUGHTER ABOUT SITUATION OF LOW BP FROM NIGHT BEFORE (04/08) BUT THAT MANUAL BP READ HIGH ENOUGH. EVEN KNOWING OF THIS EVENT, DAUGHTER WOULD LIKE US TO NOT TAKE VITALS UNLESS SHE CALLS US IN. REMINDED DAUGHTER TO CALL US WHEN PATIENT WAKES UP, DAUGHTER VERBALIZED UNDERSTANDING.
[2019-04-10] MEDS: CEFTRIAXONE SOD 1 GM/NS 50 ML 50 ML IV SCH (05:30)
[2019-04-10] MEDS: SODIUM CHLORIDE 0.9% 1000ML 1,000 ML IV SCH ×2 (05:30→20:45)
--- NOTE | 2019-04-10 05:58 | NUR ---
PATIENT'S DIAPER WET, DAUGHTER AGREED TO LET US CHANGE HER. SKIN BARRIER CREAM APPLIED. PATIENT STILL ASLEEP THROUGH CHANGING. DAUGHTER REQUESTED WE LEAVE HER ON HER BACK AT THIS TIME. DAUGHTER ALLOWED US TO TAKE VITALS. PATIENT'S BP NOTED TO BE 177/93 WITH WRIST AUTOMATIC CUFF. ASKED DAUGHTER IF WE COULD RETAKE IN 15 MINUTES TO SEE IF READING WAS ACCURATE IN EFFORT TO NOT DECREASE BP TOO FAR WITH IV HYDRALAZINE. DAUGHTER REQUESTED WE WAIT UNTIL PATIENT IS AWAKE TO CHECK AGAIN. EXPLAINED IT IS IMPORTANT FOR BP TO NOT BE TOO HIGH FOR LONG, DAUGHTER STATED SHE STILL WOULD LIKE TO WAIT TO TAKE BP UNTIL PATIENT IS AWAKE.
[2019-04-10 06:01] VITALS: BP 177/93
--- NOTE | 2019-04-10 07:00 | NUR ---
PT RESTING IN BED AA0X1 AWARE OF NAME ONLY FAMILY IS AT BEDSIDE (DAUGHTER) PT IS RESTING (ASLEEP) COMFORTABLY IN NO S/S OF DISTRESS PT HAS A RIGHT FA 20 SECURED WITH GAUZE RUNNING WITH NS AT 100CC.HR SITE IS CLEAN AND INTACT WILL CONTINUE TO MONITOR PT CLOSELY, SIDE RAILSX2, BED WHEELS LOCKED, CALL LIGHT IS WITHIN EASY REACH, INSTRUCTED TO CALL FOR ASSISTANCE IF NEEDED
[2019-04-10 07:15] LABS: ALANINE AMINOTRANSFERASE 17 IU/L (0-55); ALBUMIN 2.5 g/dL (3.5-5.0); ALKALINE PHOSPHATASE 47 IU/L (40-150); ANION GAP 7.4 mmol/L (8-16); BLOOD UREA NITROGEN 13 mg/dL (7-26); BUN/CREATININE RATIO 18 (6-25); CALCIUM 7.5 mg/dL (8.4-10.2); CARBON DIOXIDE 25 mmol/L (22-29); CHLORIDE 113 mmol/L (98-107); CREATININE, SERUM 0.74 mg/dL (0.57-1.11); EST GLOMERULAR FILTRATION RATE > 60 ML/MIN (60-); GLUCOSE 97 mg/dL (74-118); POTASSIUM 3.4 mmol/L (3.5-5.1); SODIUM 142 mmol/L (136-145)
[2019-04-10 08:43] VITALS: BP 168/83
[2019-04-10] MEDS ORDERED: POTASSIUM CHLORIDE 20MEQ/15ML UDC NG ONE (08:45)
[2019-04-10 10:00] VITALS: BP 168/83
[2019-04-10] MEDS: MEMANTINE 10 MG TAB PO SCH ×2 (10:00→18:24)
[2019-04-10] MEDS: HYDROCORTISONE SOD SUCCINATE 100 MG VIAL IV SCH ×2 (10:00→20:03)
[2019-04-10] MEDS: PANTOPRAZOLE SOD 40 MG TABEC PO SCH (10:00)
[2019-04-10] MEDS: FLUDROCORTISONE ACETATE 0.1 MG TAB PO SCH (10:00)
[2019-04-10] MEDS ORDERED: POTASSIUM CHLORIDE 20 MEQ TAB CR PO STA (10:00)
--- NOTE | 2019-04-10 10:47 | NUR ---
CALLED REPORT TO JAIR IN MED SURG 2 . PT IS GOING TO ROOM 114
--- NOTE | 2019-04-10 10:58 | NUR ---
Patient transferred from med surg 1 via wheelchair by nurse tech. Daughters present. Patient on room air, fluids running at 100 ml/hr, IV to right FA and is clean and intact. No s/s of distress.
--- NOTE | 2019-04-10 11:05 | NUR ---
Consult Request: Visit made by the Spiritual Care Department Arabella Loyd. PV provided pastoral presence, hospitality, and supportive listening. Windows Phone Developer informed pt/family of the scope of Engineering Officer Services and availability. PHOEBE Ramseylain Spiritual Care Department O: [phone] Pager: [phone] ([phone] number calling from)
[2019-04-10 12:09] VITALS: BP 174/91
[2019-04-10 16:51] VITALS: BP 179/86
[2019-04-10] MEDS ORDERED: SODIUM CHLORIDE 0.9% 1000ML 1,000 ML ONE (18:23)
[2019-04-10] MEDS: ENOXAPARIN 30 MG/0.3 ML SYR SC SCH (18:24)
--- NOTE | 2019-04-10 18:45 | NUR ---
PATIENT SITTING ON RECLINER CHAIR WITH FLUIDS RUNNING VIA IV. DAUGHTER AT THE BEDSIDE ASSISTING HER WITH DRESSING. PATIENT ON RA AND NO S/S OF DISTRESS.
[2019-04-10] MEDS: LEVOTHYROXINE SODIUM 88 MCG TAB PO SCH (20:03)
--- NOTE | 2019-04-10 21:33 | NUR ---
Patient's family refused vital signs.
[2019-04-11] VITALS (7 sets, daily range): BP systolic 126–177; BP diastolic 81–95
[2019-04-11] MEDS: CEFTRIAXONE SOD 1 GM/NS 50 ML 50 ML IV SCH (04:39)
[2019-04-11] MEDS: SODIUM CHLORIDE 0.9% 1000ML 1,000 ML IV SCH (06:46)
--- NOTE | 2019-04-11 07:30 | NUR ---
Received patient AAOx1, manager intensive care at the bedside, IV right AC 20 gauge, patient on room air, fluids running. Bed in lowest position, side rails up x2, and call romero within reach.
[2019-04-11] MEDS: MEMANTINE 10 MG TAB PO SCH ×2 (09:40→16:36)
[2019-04-11] MEDS: PANTOPRAZOLE SOD 40 MG TABEC PO SCH (09:40)
[2019-04-11] MEDS: FLUDROCORTISONE ACETATE 0.1 MG TAB PO SCH (09:40)
[2019-04-11] MEDS: HYDROCORTISONE SOD SUCCINATE 100 MG VIAL IV SCH ×2 (09:40→21:00)
--- NOTE | 2019-04-11 10:14 | Progress Note ---
DATE: SUBJECTIVE: The patient is an 88-year-old female, who comes in with toxic encephalopathy, urinary tract infection. The patient is currently still confused. The patient has caregiver by the bedside and feeding her manually. OBJECTIVE: VITAL SIGNS: Temperature is 96.4, pulse of 61, respirations of 18, blood pressure is 167/82, pulse oximetry of 96% on room air. HEENT: Normocephalic, atraumatic. Confusion noted. CVS: S1, S2 normal. Regular rhythm. ABDOMEN: Nontender, nondistended. EXTREMITIES: Positive for edema. LABORATORY VALUES: From 04/09, hemoglobin of 11.4, hematocrit of 34.4. Chemistries; sodium is 142, potassium is 3.4, BUN 13, creatinine 0.75. The patient's microbiology, urine culture no growth in 36 to 48 hours. MEDICATIONS: Include Rocephin, levothyroxine, DVT prophylaxis. The patient is on Namenda for dementia. Pantoprazole, hydralazine p.r.n., and Zofran p.r.n. ASSESSMENT: 1. Toxic encephalopathy. 2. Urinary tract infection. 3. History of Dave's disease. 4. History of hypothyroidism. 5. History of chronic kidney disease 3. 6. Dementia. PLAN: To monitor the patient. IV fluids to be continued. The patient will be continued on Rocephin. Further recommendation per clinical course. Physical therapy to walk and continue to monitor the patient. MD OLVIN ZaragozaJ/MODL /[id number]
[2019-04-11] MEDS: ENOXAPARIN 30 MG/0.3 ML SYR SC SCH (16:36)
[2019-04-11] MEDS: HYDRALAZINE HCL 20 MG/ML VIAL IV PRN (16:36)
--- NOTE | 2019-04-11 16:45 | NUR ---
HYDRALAZINE ADMINISTERED FOR SBP OF 176. WILL RECHECK IN 15 MINUTES.
--- NOTE | 2019-04-11 17:00 | NUR ---
SBP IS 147
[2019-04-11] MEDS ORDERED: SODIUM CHLORIDE 0.9% 1000ML 1,000 ML ONE (17:04)
--- NOTE | 2019-04-11 18:31 | NUR ---
PATIENT FEET SWOLLEN, TURNED RATE OF FLUIDS FROM 100 TO 50 ML/HR. WILL NOTIFY DR. LAST. REGULAR SENIOR CARE PROVIDER AT THE BEDSIDE.
--- NOTE | 2019-04-11 18:50 | NUR ---
Dr. Pearson called back with orders for swollen legs.
[2019-04-11] MEDS ORDERED: FUROSEMIDE INJ 10 MG/ML 2 ML VIAL IV NR (19:30)
--- NOTE | 2019-04-11 20:10 | NUR ---
RECEIVED PT SITTING ON THE CHAIR AOX1 RESPIRATIONS ARE EVEN AND UN LABORED .RT AC 20 G NS AT 100 ML/HR PT HAS MULTIPLE BRUISES. BOTH LOWE LEGS SWOLLEN DR DONOVAN GIVEN THE ORDERED TO GIVE LASIX /PT HAS SITTER .CALL LIGHT WITH IN REACH .CONTINUE TO MONITOR
--- NOTE | 2019-04-11 20:20 | NUR ---
RECEIVE DPT IN BED AOX3 .RESPIRATIONS ARE EVEN AND UNLABORED DRESSING AT THE RT GLUTEAL DRY AND INTACT .DENIES PAIN CCALL LIGHT WITH IN REACH .CONTINUE TO MONITOR
[2019-04-11] MEDS: LEVOTHYROXINE SODIUM 88 MCG TAB PO SCH (21:00)
[2019-04-12] VITALS (7 sets, daily range): BP systolic 134–171; BP diastolic 83–95
[2019-04-12] MEDS: SODIUM CHLORIDE 0.9% 1000ML 1,000 ML IV SCH ×4 (00:44→22:45)
[2019-04-12] MEDS: CEFTRIAXONE SOD 1 GM/NS 50 ML 50 ML IV SCH (04:45)
[2019-04-12 06:19] LABS: BASOPHILS % 0.1 % (0.0-1.0); HEMATOCRIT 38.8 % (34.2-44.1); HEMOGLOBIN 12.9 g/dL (12.0-16.0); LYMPHOCYTES # (AUTO) 0.8 (1.0-3.2); LYMPHOCYTES % 9.3 % (18.0-39.1); MEAN CORPUSCULAR HEMOGLOBIN 28.8 pg (28-32); MEAN CORPUSCULAR HGB CONC 33.2 g/dL (31-35); MEAN CORPUSCULAR VOLUME 86.6 fL (81-99); MONOCYTES # (AUTO) 0.2 (0.2-0.8); MONOCYTES % 2.8 % (4.4-11.3); NEUTROPHILS # (AUTO) 7.1 (2.1-6.9); NEUTROPHILS % 87.2 % (38.7-80.0); PLATELET COUNT 245 x10e3/uL (140-360); RED BLOOD COUNT 4.48 x10e6/uL (3.6-5.1); RED CELL DISTRIBUTION WIDTH 15.1 % (11.7-14.4)
[2019-04-12 06:40] LABS: ANION GAP 14.5 mmol/L (8-16); BLOOD UREA NITROGEN 11 mg/dL (7-26); BUN/CREATININE RATIO 15 (6-25); CARBON DIOXIDE 27 mmol/L (22-29); CHLORIDE 104 mmol/L (98-107); CREATININE, SERUM 0.74 mg/dL (0.57-1.11); EST GLOMERULAR FILTRATION RATE > 60 ML/MIN (60-); GLUCOSE 100 mg/dL (74-118); SODIUM 143 mmol/L (136-145)
[2019-04-12 06:44] LABS: POTASSIUM 2.5 mmol/L (3.5-5.1)
--- NOTE | 2019-04-12 06:45 | NUR ---
PT RESTING .PUT NEW IV LINE AT THE RT WRIST FAMILY AT THE BEDSIDE .CALL LIGHT WITH IN REACH .CONTINUE TO MONITOR
--- NOTE | 2019-04-12 07:00 | NUR ---
BEDSIDE SHIFT REPORT RECEIVED FROM HANDY WORKER RN. PT DENIES NEEDS AT THIS TIME.
--- NOTE | 2019-04-12 07:08 | NUR ---
BEDSIDE REPORT GIVEN TO THE ONCOMING NURSE
--- NOTE | 2019-04-12 07:30 | NUR ---
DR. DONOVAN AT BEDSIDE TO SEE THE PT.
[2019-04-12] MEDS ORDERED: POTASSIUM CHLORIDE 20 MEQ TAB CR PO STA (07:59)
[2019-04-12] MEDS ORDERED: POTASSIUM CHLORIDE 20MEQ/100ML 100 ML IV ONE (08:00)
[2019-04-12] MEDS: PANTOPRAZOLE SOD 40 MG TABEC PO SCH (08:15)
[2019-04-12] MEDS: MEMANTINE 10 MG TAB PO SCH ×2 (08:38→17:43)
[2019-04-12] MEDS: FLUDROCORTISONE ACETATE 0.1 MG TAB PO SCH (08:38)
[2019-04-12] MEDS: HYDROCORTISONE SOD SUCCINATE 100 MG VIAL IV SCH ×2 (08:51→21:54)
--- NOTE | 2019-04-12 10:38 | Progress Note ---
DATE: SUBJECTIVE: The patient is an 88-year-old female that is here for her urinary tract infection and toxic encephalopathy. Currently, the patient is confused, [id number] by the bedside. MEDICINES: She is taking Rocephin, enoxaparin, levothyroxine, Namenda, pantoprazole and trazodone. OBJECTIVE: VITAL SIGNS: Temperature is 96.0, pulse of 105, blood pressure is 165/89. HEENT: Normocephalic and atraumatic. Pupils reactive to light and accommodation. The patient appears confused. CVS: S1, S2 normal. Regular rate and rhythm. LUNGS: Clear to auscultation. EXTREMITIES: Positive for bilateral edema. LABORATORY VALUES: White count is normal of 8.10. RDW is 115.1. Chemistry shows potassium of 2.5, yesterday was 3.4. Urine culture has been negative so far. ASSESSMENT: 1. Urinary tract infection. 2. Toxic encephalopathy. 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 5. Chronic disease. 6. Dementia. PLAN: To continue with IV antibiotics. Stop the IV fluids. Give IV Lasix 1. Replace potassium for hyperkalemia. Physical therapy to evaluate the patient's condition, and possible SNF evaluation and transfer were accepted. Check BMP in the morning. MD MEGNA Zaragoza/EVERARDOL /[id number]
[2019-04-12] MEDS: ENOXAPARIN 30 MG/0.3 ML SYR SC SCH (17:43)
--- NOTE | 2019-04-12 19:00 | NUR ---
BEDSIDE SHIFT REPORT GIVEN TO THE BROTH MIXER RN. PT DENIED FURTHER NEEDS.
[2019-04-12] MEDS: LEVOTHYROXINE SODIUM 88 MCG TAB PO SCH (21:00)
[2019-04-13] VITALS (8 sets, daily range): BP systolic 139–179; BP diastolic 79–91
[2019-04-13] MEDS: CEFTRIAXONE SOD 1 GM/NS 50 ML 50 ML IV SCH (05:45)
[2019-04-13 05:51] LABS: ANION GAP 10.1 mmol/L (8-16); BLOOD UREA NITROGEN 18 mg/dL (7-26); BUN/CREATININE RATIO 23 (6-25); CARBON DIOXIDE 28 mmol/L (22-29); CHLORIDE 107 mmol/L (98-107); CREATININE, SERUM 0.78 mg/dL (0.57-1.11); EST GLOMERULAR FILTRATION RATE > 60 ML/MIN (60-); GLUCOSE 112 mg/dL (74-118); MAGNESIUM 1.8 MG/DL (1.3-2.1); POTASSIUM 3.1 mmol/L (3.5-5.1); SODIUM 142 mmol/L (136-145)
[2019-04-13] MEDS: LEVOTHYROXINE SODIUM 88 MCG TAB PO SCH (07:30)
--- NOTE | 2019-04-13 07:36 | NUR ---
REPORT GIVEN TO ONCOMING NURSE.WALKING ROUNDS MADE.PT RESTING IN BED WITH NO S/S OF DISTRESS.
[2019-04-13] MEDS ORDERED: POTASSIUM CHLORIDE 20 MEQ TAB CR PO NR ×2 (08:30→13:30)
[2019-04-13] MEDS: MEMANTINE 10 MG TAB PO SCH ×2 (09:44→16:57)
[2019-04-13] MEDS: HYDROCORTISONE SOD SUCCINATE 100 MG VIAL IV SCH ×2 (09:44→20:49)
[2019-04-13] MEDS: FLUDROCORTISONE ACETATE 0.1 MG TAB PO SCH (09:44)
[2019-04-13] MEDS: SODIUM CHLORIDE 0.9% 1000ML 1,000 ML IV SCH ×2 (09:44→20:50)
--- NOTE | 2019-04-13 13:16 | NUR ---
Spoke with Dr. Cesar regarding discharge plan. Informed him that PT is recommending that pt return to her assisted living facility. Dr. Cesar states pt needs one more week of IV abx. Gave order for SNF eval. FREDO spoke to pt's daughter Minnie Gonzales ([phone]) at [facility]. She states that her sister (Maryan Trujillo [phone]) has a list of 3 facilities that she is looking at. She will let Maryan know to call Cm once choice has been made. FREDO business card was given to Ms. Gonzales.
--- NOTE | 2019-04-13 15:30 | NUR ---
SPOKE WITH PT AND PROVIDER, FAMILY IS LOOKING AT [facility], EXPLAINED I HAVE IMM LETTER FOR FAMILY AND WILL GET CHOICE SIGNED IN MORNING.
[2019-04-13] MEDS: ENOXAPARIN 30 MG/0.3 ML SYR SC SCH (16:57)
--- NOTE | 2019-04-13 17:33 | NUR ---
Nutrition Follow-up Note RD Recommendation(s) for Physician: -Continue current diet as ordered; diet texture per CAKE PUNCHER -Rec Ensure Enlive BID to increase protein-calorie intake Plan of Care: RD following, monitoring for tolerance and adequacy, ONS rec Nutrition reason for involvement: Follow up RD Assessment 04/13 Visited pt in the room. Per caregiver, pts appetite has decreased. Pt only took a few bites of breakfast today. No complains of nausea or vomiting. LBM 04/12. Pt was tolerating current diet texture. CAKE PUNCHER following for NMES. Pt was drinking Ensure x2/day at home; RD rec to continue that while in the hospital. Notified RN of ONS rec. Will continue to monitor and follow. 04/08 Pt was discussed during AM rounds. Per CAKE PUNCHER Evelyn, NPO is recommended with risk of aspiration. Spoke with JANICE Peguero; family refused PEG placement. Visited pt in the room. No caregiver on bedside. Unable to obtain hx from pt due to confusion. Per PCT, pt was eating very well this AM with family feeding the pt. Will continue to monitor and follow. (04/05/2019) Chart reviewed. Labs and meds reviewed. Initial encounter with patient. Caregiver provided nutrition due to Dementia. Pt needs to be fed. 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 Attempted to contact daughter of patient regarding allergy to calcium. Spoke to nurse also to clarify. Pt does not have any difficulty chewing or swallowing with partials. No N,V, D reported. Principal Problems/Diagnoses: dehydration, generalized weakness, lethargy PMH: hypothyroidism GI: abdomen flat, soft, flatus present, LBM 04/13 Skin: intact Labs: (04/13) K 3.1 L, Ca 8.0 L (04/07) K 3.0 L, Ca 7.5 L Meds: solu-cortef, NaCl, synthroid Ht: 61in Wt: 131.25lb BMI: 24.8kg/m2 IBW: 105lb Malnutrition Evaluation (04/05/2019) The patient does not meet criteria for a specified degree of malnutrition at this time. Will re-evaluate at follow-up as appropriate. Nutrition Prescription (Diet Order): cardiac diet (mechanical soft, nectar) Estimated Nutritional Needs: Calories: 1475 1770kcal (25-30kcal/kg/d) Weight used: CBW Protein: 59 89g (1-1.5g/kg/d) Weight used: CBW Diet Adequacy: Not meeting calorie needs, Not meeting protein needs Diet Education Needs Assessment: Diet education indicated, but patient not appropriate for education at this time. Nutrition Care Level: mod Nutrition Diagnosis: Inadequate oral intake related to poor appetite as evidenced by PO < 25%. Goal: Patient will meet 75-100% of estimated needs by follow up Progress: N/A Interventions: Modified diet, liquid supplements Monitoring/Evaluation: Total energy intake, Total protein intake, Modified diet, Liquid supplement, Weight change Signed: Lorena De Leon MS, RD, LD
--- NOTE | 2019-04-13 19:27 | NUR ---
Patient received lying in bed. AAO x 1. Human Resources Benefits Coordinator at bedside. Patient had no complaints of pain. No signs of respiratory distress. Fall precautions implemented. Patient / Human Resources Benefits Coordinator instructed to call for assistance when needed. Call light within reach.
[2019-04-13] MEDS ORDERED: LEVOTHYROXINE SODIUM 88 MCG TAB PO SCH (20:00)
[2019-04-13] MEDS: HYDRALAZINE HCL 20 MG/ML VIAL IV PRN (20:51)
[2019-04-14] VITALS: BP 149/79
[2019-04-14 04:00] VITALS: BP 154/84
[2019-04-14] MEDS: CEFTRIAXONE SOD 1 GM/NS 50 ML 50 ML IV SCH (05:20)
[2019-04-14] MEDS: SODIUM CHLORIDE 0.9% 1000ML 1,000 ML IV SCH (05:25)
--- NOTE | 2019-04-14 07:00 | NUR ---
BEDSIDE SHIFT REPORT RECEIVED FROM SALES AUDIT CLERK RN. PT DENIES NEEDS AT THIS TIME
--- NOTE | 2019-04-14 07:17 | NUR ---
Patient resting comfortably. Shift report given to oncoming nurse
[2019-04-14 07:23] LABS: ALANINE AMINOTRANSFERASE 14 IU/L (0-55); ALBUMIN 2.5 g/dL (3.5-5.0); ALBUMIN/GLOBULIN RATIO 1.2 (0.8-2.0); ALKALINE PHOSPHATASE 42 IU/L (40-150); ANION GAP 9.6 mmol/L (8-16); BLOOD UREA NITROGEN 16 mg/dL (7-26); BUN/CREATININE RATIO 23 (6-25); CALCIUM 7.8 mg/dL (8.4-10.2); CARBON DIOXIDE 27 mmol/L (22-29); CHLORIDE 109 mmol/L (98-107); CREATININE, SERUM 0.71 mg/dL (0.57-1.11); EST GLOMERULAR FILTRATION RATE > 60 ML/MIN (60-); GLUCOSE 106 mg/dL (74-118); SODIUM 143 mmol/L (136-145)
[2019-04-14 07:26] LABS: POTASSIUM 2.6 mmol/L (3.5-5.1)
--- NOTE | 2019-04-14 07:40 | NUR ---
PT POTASSIUM LEVEL 2.6. CALLED AND INFORMED DR. LAST. NEW ORDER RECEIVED.
[2019-04-14] MEDS ORDERED: POTASSIUM CHLORIDE 20 MEQ TAB CR PO NR ×2 (08:00→12:00)
[2019-04-14] MEDS: FLUDROCORTISONE ACETATE 0.1 MG TAB PO SCH (08:12)
[2019-04-14] MEDS: MEMANTINE 10 MG TAB PO SCH (08:12)
[2019-04-14 08:14] VITALS: BP 149/71
[2019-04-14 09:00] VITALS: BP 149/71
[2019-04-14] MEDS ORDERED: PANTOPRAZOLE 40 MG 10ML VIAL IV SCH (09:00)
[2019-04-14] MEDS ORDERED: HYDROCORTISONE 10 MG TAB PO SCH (09:00)
--- NOTE | 2019-04-14 11:26 | NUR ---
PT ACCEPTED TO ROOM [address] [facility]OZ[facility] CARE GOING TO [place] [id number] [facility].
--- NOTE | 2019-04-14 12:00 | NUR ---
OKAY TO TRANSFER PT TO [facility] PER DR. LAST.
[2019-04-14 12:10] VITALS: BP 152/74
--- NOTE | 2019-04-14 12:30 | NUR ---
SPEECH PATHOLOGIST RECOMMEND NMES. INFORMED DR LAST.
--- NOTE | 2019-04-14 12:34 | NUR ---
CALLED [facility] AND GIVEN REPORT TO JANICE TAYLOR.
--- NOTE | 2019-04-15 06:17 | Discharge Summary ---
DISCHARGE DIAGNOSES: 1. Urinary tract infection. 2. Weakness. 3. Trade's disease. 4. Hypokalemia. 5. Aspiration. 6. Dementia. 7. Hypothyroidism. 8. Hypertension. HISTORY OF PRESENT ILLNESS AND HOSPITAL COURSE: See hospital chart for full details. The patient is an 88-year-old lady with some mild dementia, presented with mental status changes where she is definitely encephalopathic when she came in. She had an outside urinalysis showing urinary tract infection for which she was placed on IV antibiotics and IV hydrocortisone for Dave's disease, and within days, patient significantly improved in her mental status, pretty much her baseline. While she is here, she had a barium swallow done that showed the patient aspirated pretty much with all consistencies. I had a long talk with the power of attorney at law, the daughter that we usually recommended not anything by mouth and using a PEG tube, but family did not want to go down this road. They are willing to try the therapy with NBS stimulator, but they want to allow her to enjoy her rest of her life by eating, and they fully understand that this may help medical pass on by getting aspiration pneumonia and they are willing to take that chance. At the time of discharge, the patient was doing better but still overall weak, so she was sent to halfway facility for continued IV antibiotics and speech therapy with the stimulator and will follow up with me once discharged. Please see hospital chart for full details. MD MARIZA Henson/JOSE R /[id number]
== END 2019-04-14 14:42 | DRG 689 ==
LOC: ER 16:27 → ERHOLD 21:20 → MED/SURG 04-04 01:13 → OBSVTOIN 04-07 09:23 → MED/SURG2 04-10 10:50
PROVIDERS: ADMIT Internal Medicine; ATTEND Internal Medicine
DX: N39.0 Urinary tract infection, site not specified (principal); G92 Toxic encephalopathy; E27.1 Primary adrenocortical insufficiency; E03.9 Hypothyroidism, unspecified; N18.3 Chronic kidney disease, stage 3 (moderate); E86.0 Dehydration; F03.90 Unspecified dementia, unspecified severity, without behavioral disturbance, psychotic disturbance, mood disturbance, and anxiety; Z82.49 Family history of ischemic heart disease and other diseases of the circulatory system; Z88.5 Allergy status to narcotic agent; Z88.8 Allergy status to other drugs, medicaments and biological substances; E87.5 Hyperkalemia; K21.9 Gastro-esophageal reflux disease without esophagitis; D64.9 Anemia, unspecified; R53.1 Weakness; J98.8 Other specified respiratory disorders
CPT/HCPCS: 36415; 70450; 71045; 74230; 80048; 80053; 81001; 82948; 83735; 85025; 87086; 96361; 97139; 99284; G0378; J0360; J0696; J1650; J1720; J1940; J3480; J7030